=== PATIENT | male | born 1945 | race Caucasian/White ===

== ENCOUNTER 2017-07-06 10:28 | Emergency (ER) | payer MEDICARE, OTHER ==
[2017-07-06 11:20] LABS: ABS Basophils 0.1 10^3/ul (0-0.2); ABS Eosinophils 0 10^3/ul (0-0.6); ABS Lymphocytes 2.1 10^3/ul (1.0-4.8); ABS Monocytes 0.8 10^3/ul (0-0.8); ABS Neutrophils 10.5 10^3/ul (1.5-7.7); ABS Nucleated RBC 0 10^3/ul; Eosinophil % 0.3 % (0-6); Hematocrit 49 % (42-52); Hemoglobin 16.9 g/dl (14.0-18.0); Lymphocyte % 15.9 % (25-47); Mean Corpuscular HGB Conc 35 g/dl (31-36); Mean Corpuscular Hemoglobin 33 pg (27-31); Mean Corpuscular Volume 95 fL (80-94); Mean Platelet Volume 6.6 um3 (7.4-10.4); Nucleated Red Blood Cells % 0; Platelet Count 230 10^3/ul (150-450); Red Blood Count 5.14 10^6/ul (4.0-5.4); Red Cell Distribution Width 13 % (10.5-15); White Blood Count 13.5 10^3/ul (3.5-10.8)
[2017-07-06] MEDS ORDERED: Morphine INJ* 10 MG/ML 1 ML CARPUJECT IV ONE ×2 (11:29→11:48)
[2017-07-06] MEDS ORDERED: Ondansetron INJ* 2 MG/ML VIAL IV ONE (11:29)
[2017-07-06] MEDS ORDERED: NS 0.9% 1000 ML* 1,000 ML IV ONE (11:29)
[2017-07-06] MEDS ORDERED: Morphine INJ* 10 MG/ML 1 ML CARPUJECT ONE (11:30)
[2017-07-06] MEDS ORDERED: Ondansetron INJ* 2 MG/ML VIAL ONE (11:31)
[2017-07-06] MEDS ORDERED: LORazepam INJ* 2 MG/ML 1 ML VIAL IV PUSH ONE (11:40)
[2017-07-06] MEDS ORDERED: Adenosine* 3 MG/ML VIAL IV PUSH ONE (11:41)
[2017-07-06 11:42] LABS: EGFR Non-African American 81.6 (>60)
[2017-07-06] MEDS ORDERED: Iohexol 350* (CONTRAST) 500 ML MDV IV ONE (11:55)
[2017-07-06] MEDS ORDERED: HYDROmorphone INJ* 2 MG/ML CARPUJECT SYRINGE IV SLOW PU ONE (12:27)
[2017-07-06] MEDS ORDERED: HYDROmorphone INJ* 2 MG/ML CARPUJECT SYRINGE ONE (12:29)
--- NOTE | 2017-07-06 13:42 | RAD ---
Indication: Abdominal pain into the back with left flank pain. History of C5 fracture. Contrast: Administered 100.1 ml of OMNIPAQUE 350 mg/ml CTA of the chest, abdomen and pelvis was performed after IV contrast administration. No oral contrast was administered. No prior study is available for comparison. Inferior thyroid lobes are unremarkable. The aortic arch, ascending aorta and descending aorta demonstrates no evidence of aortic dissection. There is mild ectasia of the ascending aorta measuring up to 3.5 cm. The pulmonary arterial tree is well opacified. There are no filling defects present to suggest pulmonary embolus. No mediastinal or hilar adenopathy is noted. The heart demonstrates no pericardial effusion. The trachea and major bronchi appear patent. Lung pisano demonstrate no evidence of pleural fluid, nodules or masses. No evidence of alveolar consolidation is noted. The axilla demonstrates no evidence of abnormal adenopathy. The abdominal aorta demonstrates no evidence of aneurysmal dilatation. Mild atherosclerosis with peripheral thrombus is noted in the atherosclerotic aorta. Common iliac and external iliac arteries are grossly unremarkable. The urinary bladder is unremarkable. There is mild left hydronephrosis. Mild left hydroureter is noted. There appears to be a calculus in the distal left ureter with a calculi measuring approximately 3.4 mm. The right kidney shows no hydronephrosis. The right ureter is unremarkable. Prostate is enlarged. No hernias are noted. Urinary bladder is grossly unremarkable. IMPRESSION: 3.5 MM CALCULUS IN THE DISTAL LEFT URETER WITH LEFT HYDRONEPHROSIS AND HYDROURETER. THERE APPEARS TO BE SOME DELAY IN THE NEPHROGRAPHIC PHASE OF THE LEFT KIDNEY. 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 NO EVIDENCE OF PULMONARY EMBOLUS IS NOTED. ENLARGED PROSTATE.
[2017-07-06] MEDS ORDERED: Ketorolac INJ* 30 MG/ML 1 ML VIAL IV PUSH ONE (14:41)
[2017-07-06 16:08] VITALS: BP 155/96
--- NOTE | 2017-07-15 14:07 | ED ---
Megan Mcgee Gabriel, scribed for Jose Juan Cardoso MD on 07/06/17 at 1145 . Abdominal Pain/Male - HPI Summary HPI Summary: This patient is a 71 year old M presenting to [facility] accompanied by his with a chief complaint of left flank pain since 2 days. The patient rates the pain 7/10 in severity. Symptoms alleviated by nothing, pt tried BM and vomiting with no relief. Patient reports nausea. Patient denies hematuria, dysuria, fever , sweats , chills, LE numbness or tingling, and CP. Pts states he has been walking hunched in pain. Patient complains of pain at the IV in left antecubital fossa. - History of Current Complaint Chief Complaint: EDAbdPain Stated Complaint: ABD PAIN Time Seen by Provider: 07/06/17 10:49 Hx Obtained From: Patient Onset/Duration: Lasting Days, Still Present Timing: Constant, Lasting Days - 2 Severity Initially: Mild Severity Currently: Severe Pain Intensity: 7 Pain Scale Used: 0-10 Numeric Location: Flank Alleviating Factor(s): Nothing Associated Signs And Symptoms: Positive: Negative - hematuria, dysuria, fever, sweats , chills, LE numbness or tingling, and CP., Nausea, Other - vomiting - Allergies/Home Medications Allergies/Adverse Reactions: Allergies Allergy/AdvReac Type Severity Reaction Status Date / Time No Known Allergies Allergy Verified 09/25/16 13:03 Home Medications: Home Medications Fluticasone DISKUS 100 MCG(NF) [Flovent Diskus 100 MCG(NF)] 1 puff INH BID 07/06 [History Confirmed 07/06/17] Fluticasone NASAL SPRAY 50MCG* [Flonase NASAL SPRAY 50MCG*] 2 spray BOTH NARES DAILY 07/06/17 [History Confirmed 07/06/17] Ipratropium [place] [Ipratropium [place]] 1 spray BOTH NARES DAILY 07/06/17 [ History Confirmed 07/06/17] PMH/Surg Hx/FS Hx/Imm Hx Respiratory History: Reports: Hx Seasonal Allergies Musculoskeletal History: Reports: Other Musculoskeletal History - broke neck EENT History: Denies: Hx Deafness Neurological History: Denies: Hx CVA, Hx Dementia - Surgical History Surgery Procedure, Year, and Place: neck surgery Infectious Disease History: No Infectious Disease History: Denies: Traveled Outside the [place] in Last 30 Days - Family History Known Family History: Negative: Diabetes, Renal Disease, Respiratory Disease, Seizure Disorder, Other - no kidney stones of AAA - Social History Occupation: Employed Full-time Lives: With Family Alcohol Use: None Substance Use Type: Reports: None Smoking Status (MU): Unknown if Ever Smoked Review of Systems Negative: Fever, Chills, Skin Diaphoresis Negative: Erythema Negative: Sore Throat Negative: Chest Pain Negative: Shortness Of Breath, Cough Positive: Vomiting, Nausea. Negative: Abdominal Pain Positive: flank pain. Negative: dysuria, hematuria Negative: Myalgia, Edema Negative: Rash Neurological: Negative - dizziness Negative: Numbness All Other Systems Reviewed And Are Negative: Yes Physical Exam - Summary Physical Exam Summary: Constitutional: Well-developed, Well-nourished, Alert. (-) Distressed Skin: Warm, Dry, there is a palpable lump at the left medial bicep, possible IV infiltrate HENT: Normocephalic; Atraumatic Eyes: Conjunctiva normal Neck: Musculoskeletal ROM normal neck. (-) JVD, (-) Stridor, (-) Tracheal deviation Cardio: Rhythm regular, rate normal, Heart sounds normal; Intact distal pulses; The pedal pulses are 2+ and symmetric. Radial pulses are 2+ and symmetric. (-) Murmur Pulmonary/Chest wall: Effort normal. (-) Respiratory distress, (-) Wheezes, (-) Rales Abd: Soft, (-) Tenderness, (-) Distension, (-) Guarding, (-) Rebound Musculoskeletal: (-) Edema Lymph: (-) Cervical adenopathy Neuro: Alert, Oriented x3 Psych: Mood and affect Normal Triage Information Reviewed: Yes Vital Signs On Initial Exam: Initial Vitals Temp Pulse Resp BP Pulse Ox 97.5 F 69 18 178/98 100 07/06/17 10:28 07/06/17 10:28 07/06/17 10:28 07/06/17 10:28 07/06/17 10:28 Vital Signs Reviewed: Yes Diagnostics - Vital Signs Vital Signs Temp Pulse Resp BP Pulse Ox 07/06/17 11:40 24 07/06/17 10:28 97.5 F 69 18 178/98 100 - Laboratory Lab Results: Lab Results 04/17/18 04/17/18 Range/Units 11:05 11:05 WBC 13.5 H (3.5-10.8) 10^3/ul RBC 5.14 (4.0-5.4) 10^6/ul Hgb 16.9 (14.0-18.0) g/dl Hct 49 (42-52) % MCV 95 H (80-94) fL MCH 33 H (27-31) pg MCHC 35 (31-36) g/dl RDW 13 (10.5-15) % Plt Count 230 (150-450) 10^3/ul MPV 6.6 L (7.4-10.4) um3 Neut % (Auto) 77.8 (38-83) % Lymph % (Auto) 15.9 L (25-47) % [place] % (Auto) 5.6 (0-7) % Eos % (Auto) 0.3 (0-6) % Baso % (Auto) 0.4 (0-2) % Absolute Neuts (auto) 10.5 H (1.5-7.7) 10^3/ul Absolute Lymphs (auto) 2.1 (1.0-4.8) 10^3/ul Absolute Monos (auto) 0.8 (0-0.8) 10^3/ul Absolute Eos (auto) 0 (0-0.6) 10^3/ul Absolute Basos (auto) 0.1 (0-0.2) 10^3/ul Absolute Nucleated RBC 0 10^3/ul Nucleated RBC % 0 Sodium 140 (139-145) mmol/L Potassium 3.7 (3.5-5.0) mmol/L Chloride 106 (101-111) mmol/L Carbon Dioxide 24 (22-32) mmol/L Anion Gap 10 (2-11) mmol/L BUN 25 H (6-24) mg/dL Creatinine 0.92 (0.67-1.17) mg/dL Est GFR ( Amer) 104.9 (>60) Est GFR (Non-Af Amer) 81.6 (>60) BUN/Creatinine Ratio 27.2 H (8-20) Glucose 118 H (70-100) mg/dL Calcium 9.6 (8.6-10.3) mg/dL Total Bilirubin 1.30 H (0.2-1.0) mg/dL AST 25 (13-39) U/L ALT 39 (7-52) U/L Alkaline Phosphatase 53 (34-104) U/L C-Reactive Protein < 1.00 (< 5.00) mg/L Total Protein 6.8 (6.4-8.9) g/dL Albumin 4.5 (3.2-5.2) g/dL Globulin 2.3 (2-4) g/dL Albumin/Globulin Ratio 2.0 (1-3) Lipase 93 H (11.0-82.0) U/L Result Diagrams: 07/06/17 11:05 07/06/17 11:05 Lab Statement: Any lab studies that have been ordered have been reviewed, and results considered in the medical decision making process. - CT CTA Chest/ABD/Pelvis CT Interpretation Completed By: Radiologist - 3.5 MM CALCULUS IN THE DISTAL LEFT URETER WITH LEFT HYDRONEPHROSIS AND HYDROURETER. THERE APPEARS TO BE SOME DELAY IN THE NEPHROGRAPHIC PHASE OF THE LEFT KIDNEY. 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 NO EVIDENCE OF PULMONARY EMBOLUS IS NOTED. ENLARGED PROSTATE. ED physician has reviewed this radiology report. Re-Evaluation - Re-Evaluation First Eval Re-Evaluation Time: 12:00 Change: Unchanged Comment: Possible IV infiltrate nursing staff will replace line and more pain medication will be ordered. Second Eval Re-Evaluation Time: 15:11 Change: Improved Comment: All the pt's pain has resolved. Abdominal Pain Fem Course/Dx - Course Assessment/Plan: This patient is a 71 year old M presenting to [facility] accompanied by his with a chief complaint of left flank pain since 2 days. The patient rates the pain 7/10 in severity. Symptoms alleviated by nothing, pt tried BM and vomiting with no relief. Patient reports nausea. Patient denies hematuria, dysuria, fever, sweats, chills, LE numbness or tingling, and CP. Pt s states he has been walking hunched in pain. Patient complains of pain at the IV in left antecubital fossa. CTA chest/ABD/Pelvis reveals, per radiologist, 3.5 MM CALCULUS IN THE DISTAL LEFT URETER WITH LEFT HYDRONEPHROSIS AND. HYDROURETER. THERE APPEARS TO BE SOME DELAY IN THE NEPHROGRAPHIC PHASE OF THE LEFT KIDNEY. 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 NO EVIDENCE OF PULMONARY. EMBOLUS IS NOTED. ENLARGED PROSTATE. Test results with no significant abnormalities. In the ED course the patient was given IV fluids, zofran, morphine, ativan, toradol, and dilaudid. The patient is feeling better, all pain has resolved and there is no obstruction. Patient will be discharged and follow up from Dr. Bejarano. The patient is agreeable with this plan. - Diagnoses Provider Diagnoses: Ureteral stone Discharge - Sign-Out/Discharge Documenting (check all that apply): Discharge - Discharge Plan Condition: Stable Disposition: HOME Prescriptions: HYDROcodone/ACETAMIN 5-325 MG* [[place]kes 5-325 TAB*] 1 tab PO Q6H PRN #10 tab MDD 4 PRN Reason: Pain - Moderate To Severe Ketorolac TAB * [Toradol TAB *] 10 mg PO Q6H #10 tab Tamsulosin CAP* [Flomax CAP*] 0.4 mg PO DAILY #5 cap Patient Education Materials: Kidney Stones (ED) Referrals: Jb Bejarano MD [Medical Doctor] - 3 Days Additional Instructions: RETURN TO THE EMERGENCY DEPARTMENT FOR CHANGING OR WORSENING SYMPTOMS The documentation as recorded by the Megan milner Gabriel accurately reflects the service I personally performed and the decisions made by , Jose Juan Cardoso MD.
== END 2017-07-06 16:10 | disposition home or self-care (01) ==
LOC: ED 10:28
DX: N20.1 Calculus of ureter (principal); R10.84 Generalized abdominal pain; R11.2 Nausea with vomiting, unspecified
CPT/HCPCS: 36415; 71275; 74174; 80053; 83605; 83690; 85025; 86140; 96374; 96375; 99284; J1170; J1885; J2270; J2405; Q9967

== ENCOUNTER 2022-08-28 07:54 | Observation (INO) ==
[2022-08-28] MEDS ORDERED: Pantoprazole VIAL 40 MG VIAL IV ONE (08:37)
[2022-08-28] MEDS ORDERED: Pantoprazole 80 mg in NS BAG 80 MG/250 ML BAG IV ONE (08:38)
[2022-08-28 09:00] LABS: ABS Lymphocytes 1.6 10^3/uL (1.0-4.8); ABS Monocytes 1.4 10^3/uL (0.0-1.1); ABS Neutrophils 16.2 10^3/uL (1.5-7.6); Hematocrit 36.7 % (38-53); Hemoglobin 12.5 g/dL (13.2-16.3); Lymphocyte % 8.4 %; Mean Corpuscular Hemoglobin 32.9 pg (27-33); Mean Corpuscular Hgb Conc 34.1 g/dL (31-36); Mean Corpuscular Volume 96.3 fL (80-97); Mean Platelet Volume 6.6 fL (7.5-11.2); Platelet Count 279 10^3/uL (150-450); Red Blood Count 3.81 10^6/uL (4.06-5.63); Red Cell Distribution Width 12.7 % (12-17); White Blood Count 19.3 10^3/uL (3.6-10.2)
[2022-08-28] MEDS ORDERED: Lactated Ringers 1000 ml BAG 1,000 ML IV SCH (09:00)
[2022-08-28 09:45] LABS: Albumin 3.4 g/dL (3.2-5.2); Calcium 8.2 mg/dL (8.6-10.3); Creatinine, Serum 0.83 mg/dL (0.67-1.17); Globulin 1.7 g/dL (2-4); Magnesium 1.6 mg/dL (1.9-2.7); Total Bilirubin 1.4 mg/dL (0.2-1.0); Total Protein 5.1 g/dL (6.4-8.9); eGFR CKD-EPI 91.8 (>60)
[2022-08-28] MEDS ORDERED: Magnesium Sulfate 2 gm BAG 2 GM/50 ML BAG IVPB ONE (09:46)
[2022-08-28 10:05] LABS: C Reactive Protein 5.68 mg/L (<8.01)
[2022-08-28 12:03] LABS: Hemoglobin 10.1 g/dL (13.2-16.3)
[2022-08-28] MEDS ORDERED: Lactated Ringers 1000 ml BAG 1,000 ML IV ONE (13:27)
[2022-08-28] MEDS ORDERED: Midazolam 10 mg/10 ml VIAL 1 mg/ml 10 ml VIAL (10 mg) IV SLOW PU ONE (13:27)
[2022-08-28] MEDS ORDERED: Naloxone 0.4 mg VIAL 0.4 mg/ml 1 ml VIAL IV PUSH PRN (13:27)
[2022-08-28] MEDS ORDERED: Flumazenil 0.5 mg/5 ml 0.1 MG/ML 5 ml VIAL IV PRN (13:27)
[2022-08-28] MEDS ORDERED: Lidocaine 2% JELLY 6 ML Topical TOPICAL ONE (13:27)
[2022-08-28] MEDS ORDERED: Ondansetron 4 mg VIAL 2 MG/ML 2 ml VIAL IV ONE (13:27)
[2022-08-28] MEDS ORDERED: fentaNYL 100 mcg/2 ml 50 MCG/ML VIAL IV SLOW PU ONE (13:27)
[2022-08-28] MEDS ORDERED: fentaNYL 100 mcg/2 ml 50 MCG/ML VIAL ONE (13:38)
[2022-08-28] MEDS ORDERED: Midazolam 10 mg/10 ml VIAL 1 mg/ml 10 ml VIAL (10 mg) ONE (13:38)
[2022-08-28] MEDS ORDERED: Ondansetron 4 mg VIAL 2 MG/ML 2 ml VIAL IV PRN (15:18)
[2022-08-28 19:07] LABS: Hematocrit 30.7 % (38-53); Hemoglobin 10.9 g/dL (13.2-16.3)
[2022-08-28] MEDS: Pantoprazole VIAL 40 MG VIAL IV SCH (21:13)
[2022-08-29 03:33] LABS: ABS Basophils 0.1 10^3/uL (0.0-0.1); ABS Monocytes 0.9 10^3/uL (0.0-1.1); ABS Neutrophils 6.7 10^3/uL (1.5-7.6); Eosinophil % 0.4 %; Hematocrit 26.9 % (38-53); Hemoglobin 9.6 g/dL (13.2-16.3); Lymphocyte % 28.3 %; Mean Corpuscular Hemoglobin 34.4 pg (27-33); Mean Corpuscular Hgb Conc 35.8 g/dL (31-36); Mean Corpuscular Volume 96.1 fL (80-97); Mean Platelet Volume 6.4 fL (7.5-11.2); Platelet Count 197 10^3/uL (150-450); Red Cell Distribution Width 12.8 % (12-17); White Blood Count 10.8 10^3/uL (3.6-10.2)
[2022-08-29 03:50] LABS: Calcium 7.8 mg/dL (8.6-10.3); Creatinine, Serum 0.76 mg/dL (0.67-1.17); Potassium 3.8 mmol/L (3.5-5.0); eGFR CKD-EPI 94.3 (>60)
[2022-08-29] MEDS: Pantoprazole VIAL 40 MG VIAL IV SCH ×2 (08:32→21:05)
[2022-08-29] MEDS ORDERED: Potassium Chlor 20 meq TAB.ER PO ONE (10:14)
[2022-08-29 16:25] LABS: Hematocrit 28.5 % (38-53); Hemoglobin 10.1 g/dL (13.2-16.3); Mean Corpuscular Hemoglobin 33.7 pg (27-33); Mean Corpuscular Hgb Conc 35.4 g/dL (31-36); Mean Corpuscular Volume 95.2 fL (80-97); Mean Platelet Volume 6.5 fL (7.5-11.2); Platelet Count 205 10^3/uL (150-450); Red Blood Count 2.99 10^6/uL (4.06-5.63); White Blood Count 9.3 10^3/uL (3.6-10.2)
[2022-08-30 05:49] LABS: ABS Basophils 0.1 10^3/uL (0.0-0.1); ABS Eosinophils 0.1 10^3/uL (0.0-0.5); ABS Lymphocytes 2.8 10^3/uL (1.0-4.8); ABS Monocytes 0.8 10^3/uL (0.0-1.1); ABS Neutrophils 4.9 10^3/uL (1.5-7.6); Eosinophil % 1.4 %; Hematocrit 27.7 % (38-53); Hemoglobin 9.7 g/dL (13.2-16.3); Lymphocyte % 32.4 %; Mean Corpuscular Hgb Conc 35.1 g/dL (31-36); Mean Corpuscular Volume 96.7 fL (80-97); Mean Platelet Volume 6.5 fL (7.5-11.2); Platelet Count 192 10^3/uL (150-450); Red Blood Count 2.87 10^6/uL (4.06-5.63); White Blood Count 8.6 10^3/uL (3.6-10.2)
[2022-08-30 07:17] LABS: Calcium 8.1 mg/dL (8.6-10.3); Creatinine, Serum 0.75 mg/dL (0.67-1.17); Potassium 3.6 mmol/L (3.5-5.0); eGFR CKD-EPI 94.7 (>60)
[2022-08-30] MEDS: Pantoprazole VIAL 40 MG VIAL IV SCH (09:12)
[2022-08-30 10:03] VITALS: BP 134/70
== END 2022-08-30 10:45 | disposition home or self-care (01) ==
LOC: EDHOLD 07:54 → ED 07:54 → SUATTDRO 10:49 → EDHOLD 12:33 → MEDTELE 15:09
PROVIDERS: ADMIT Internal Medicine; ATTEND Internal Medicine